=== PATIENT | female | born 1995 | race Caucasian/White ===

== ENCOUNTER 2016-08-31 17:53 | Emergency (ER) | payer MEDICAID, OTHER ==
[~2016-08-31] VITALS: Ht 162.6 cm; Wt 84.0 kg
[2016-08-31 17:54] VITALS: BP 123/70; PULSE 78; RESP 20; TEMP 97.9; O2SAT 100
--- NOTE | 2016-08-31 18:00 | PD ---
Physical Exam Time Seen by Provider: 17:59 Narrative 20 year old female here with dysuria, increased urinary frequency. Symptoms started 3 days ago. Denies vaginal bleeding/discharge. Reports symptoms similar to previous uti's. VSS Seen at triage desk. Awaiting bed placement. Data Data Last Documented VS Vital Signs Date Time Temp Pulse Resp B/P Pulse Ox O2 Delivery O2 Flow Rate FiO2 08/31/16 17:54 97.9 78 20 123/70 100 Room Air [facility] Medical Record Reviewed: Yes Supervised Visit with ADRIANA: Yes Aurelio Monroy Aug 31, 2016 18:00
--- NOTE | 2016-08-31 19:26 | PD ---
HPI Chief Complaint: Complaint Time Seen by Provider: 19:23 Travel History International Travel<30 days: No Contact w/Intl Traveler<30days: No Traveled to known affect area: No History of Present Illness HPI 20-year-old female presents to the emergency department for evaluation of urinary frequency, urgency, dysuria that started 3 days ago. She does report some low back pain. She states she is nauseated, but denies vomiting. No fevers or chills. She reports suprapubic tenderness to palpation. Patient denies any abnormal vaginal discharge or bleeding. Patient does report some white discharge, but states this is normal for her. She states that she was recently checked for STDs which were negative. She denies . She has no chronic medical problems and takes no medications. PFSH Past Medical History ?: Not LMP: 08/2016 Social History Tobacco Use: No Allergies-Medications (Allergen,Severity, Reaction): Coded Allergies: Zofran (Verified Allergy, Severe, SEIZURE, 08/31/16) Reported Meds & Prescriptions Reported Meds & Active Scripts Active No Active Prescriptions or Reported Medications Review of Systems Except as stated in HPI: all other systems reviewed are Neg Physical Exam Narrative GENERAL: Well-nourished, well-developed female patient, ambulatory. Afebrile. SKIN: Focused skin assessment warm/dry. HEAD: Normocephalic. Atraumatic. EYES: No scleral icterus. No injection or drainage. NECK: Supple, trachea midline. No JVD or lymphadenopathy. CARDIOVASCULAR: Regular rate and rhythm without murmurs, gallops, or rubs. RESPIRATORY: Breath sounds equal bilaterally. No accessory muscle use. Lungs sounds are clear to auscultation. GASTROINTESTINAL: Abdomen soft and nondistended. Patient has suprapubic tenderness to palpation. BACK: Nontender without obvious deformity. No CVA tenderness. Data Data Last Documented VS Vital Signs Date Time Temp Pulse Resp B/P Pulse Ox O2 Delivery O2 Flow Rate FiO2 08/31/16 17:54 97.9 78 20 123/70 100 Room Air Orders Urinalysis - C+S If Indicated (08/31/16 19:23) Ed Urine Pregnancytest Poc (08/31/16 19:23) Urine Culture (08/31/16 19:25) Nitrofurantoin Monohyd Macrocr (Macrobid (08/31/16 20:00) Labs Laboratory Tests Test 08/31/16 19:25 Urine Color LIGHT-YELLOW Urine Turbidity HAZY Urine pH 6.0 Urine Specific [place] 1.010 Urine Protein TRACE mg/dL Urine Glucose (UA) NEG mg/dL Urine Ketones NEG mg/dL Urine Occult Blood TRACE Urine Nitrite NEG Urine Bilirubin NEG Urine Urobilinogen LESS THAN 2.0 MG/DL Urine Leukocyte Esterase LARGE Urine RBC 7 /hpf Urine WBC 34 /hpf Urine Squamous Epithelial 3 /hpf Cells Urine Bacteria RARE /hpf Microscopic Urinalysis Comment CULTURE INDICATED MDM Medical Decision Making Medical Screen Exam Complete: Yes Emergency Medical Condition: Yes Medical Record Reviewed: Yes Differential Diagnosis Urinary tract infection versus pyelonephritis versus dysuria Narrative Course 20-year-old female presents to the emergency department for evaluation urinary symptoms for 3 days. Patient denies risk of STDs and denies any abnormal vaginal discharge. She states she was recently checked for STDs which were negative. UA and urine test are ordered and pending. UA shows large leukocyte esterase, 7 RBC, 34 WBC, culture indicated. Urine test is negative. Physical, symptoms, laboratory findings are most consistent with UTI. The patient is given first dose of Macrobid in the emergency department. She'll be discharged with a prescription for Macrobid. She is encouraged to return for any acute worsening of symptoms. Patient verbalizes agreement and understanding. Diagnosis Primary Impression: Urinary tract infection Qualified Code: N30.01 - Acute cystitis with hematuria Referrals: Primary Care Physician call for appointment Patient Instructions: General Instructions, Urinary Tract Infection in Women ( ED) Additional Instructions: Take antibiotic as directed until gone. Follow-up with your primary care physician. Return to the emergency department for any acute worsening of symptoms. Med/Other Pt SpecificInfo: Prescription(s) given Scripts Nitrofurantoin Monohydrate Macrocrystals (Macrobid)100 Mg [id number] Mg PO BID 7 Days Ref 0 Prov:Christi Yi 08/31/16 Disposition: 01 DISCHARGE HOME Condition: Stable Christi Yi Aug 31, 2016 19:26
[2016-08-31 19:38] LABS: BACTERIA, URINE RARE /hpf; BLOOD, URINE TRACE (NEG); COMMENT (UR) CULTURE INDICATED; CULTURE IF INDICATED CULTURE INDICATED; GLUCOSE,URINE NEG (NEG); KETONE, URINE NEG (NEG); NITRITE,URINE NEG (NEG); SQUAMOUS EPITHELIAL CELL URINE 3 /hpf (0-5); URINE COLOR LIGHT-YELLOW (YELLW/STRAW)
[2016-08-31] MEDS ORDERED: MACR100C2 PO (19:49)
[2016-08-31] MEDS ORDERED: NITROFURANTOIN MONOHYD MACROCR 100 MG CAP PO ONE (20:00)
== END 2016-08-31 20:33 | disposition home or self-care (01) ==
LOC: NEPD 17:53
DX: N39.0 Urinary tract infection, site not specified (principal); R39.15 Urgency of urination; M54.5 Low back pain; B95.7 Other staphylococcus as the cause of diseases classified elsewhere
CPT/HCPCS: 81001; 84703; 87086; 99283